=== PATIENT | female | born 1935 | race Caucasian/White ===

== ENCOUNTER 2016-08-30 23:26 | Emergency (ER) | payer MEDICARE, OTHER ==
--- NOTE | ~2016-08-30 | ER ---
PATIENT'S NAME: MATTHEW GAMBOA [facility] AGE: 80 Y [address] ROOM: [place] [address] LOCATION: [facility] ADMIT DATE: 08/30/2016 ER/Outpatient Report DISCHARGE DATE: 08/31/2016 FAMILY PHYSICIAN: Physician, Unknown ATTENDING PHYSICIAN: Erasmo Mitchell Admission date and time documented in the medical record. I saw the patient at 2335 hours. CHIEF COMPLAINT: Fall. HISTORY OF PRESENT ILLNESS: The patient is an 80-year-old female, who fell backwards on some gravel. She landed first on her buttocks, then back of her head, hit the ground. She was dazed but did not lose consciousness. She has a large contusion on occipital scalp. Large swelling. No abrasions or lacerations. No visual or auditory disturbance, lateralizing weakness, numbness, tingling, or loss of function. No neck or spine pain. Does have some right buttock pain. Denies any coccyx pain. No chest pain, shortness of breath. No abdominal pain, nausea, vomiting, diarrhea. No incontinence of stool or urine. No extremity pain, swelling, redness. No skin eruptions or rash. No history of neuro changes, psych issues, endocrine problems. No lightheadedness, dizziness, syncope, or near syncope. No other trauma. No recent colds, coughs, flus, fever, chills, or sweats. HOME MEDICATIONS: See attached medication list. ALLERGIES: PENICILLIN, SHIRA INHIBITORS. SOCIAL HISTORY: Nonsmoker, occasional intake of alcohol. SIGNIFICANT PAST MEDICAL HISTORY: End-stage renal disease, on hemodialysis; carotid occlusive disease; peripheral vascular disease; atherosclerotic ischemic heart disease with coronary artery disease; hypertension; dyslipidemia; degenerative joint disease; degenerative osteoarthritis. OPERATIONS: One-vessel coronary bypass graft, cardiac catheterization, left carotid endarterectomy, cholecystectomy, AV fistula x2, bilateral total knee arthroplasty. PATIENT'S NAME: MATTHEW GAMBOA [facility] AGE: 80 Y [address] ROOM: [place] [address] LOCATION: [facility] ADMIT DATE: 08/30/2016 ER/Outpatient Report DISCHARGE DATE: 08/31/2016 FAMILY PHYSICIAN: Physician, Unknown ATTENDING PHYSICIAN: Erasmo Mitchell REVIEW OF SYSTEMS: All systems reviewed by me are negative with the exception of those discussed in the history of present illness. PHYSICAL EXAMINATION: VITAL SIGNS: Temperature 97.2 tympanic, pulse 92, respirations 16, blood pressure 171/92, O2 saturation on room air is 94%. HEAD: Normocephalic. The patient has a large almost baseball sized swelling on mid occipital scalp. No abrasions. No lacerations. No facial injuries. EYES: Extraocular muscles intact. PERRL. Sclerae and conjunctivae clear, nonicteric. EARS: Clear TMs bilaterally. NOSE AND THROAT: Clear. Mucous membranes moist. NECK: No nuchal rigidity. No thyromegaly or cervical adenopathy. Full range of motion. No tenderness. SPINE: Negative. LUNGS: Clear. No rales, rhonchi, or wheezes. HEART: Regular. Pulses are palpable. ABDOMEN: Soft, nontender. Good bowel tones. No organomegaly or abnormal mass palpable. PELVIS: Stable, nontender. EXTREMITIES: The patient has swelling like a hematoma in her right buttock, it is tender. EXTREMITIES: Moves all 4 extremities. No peripheral edema, cyanosis, or deformity. NEUROVASCULAR: Intact. SKIN: Clear. No skin eruptions or rash. LABORATORY DATA AND X-RAYS: CT scan of the head showed no intracranial bleed, midline shift, mass effect, or skull fracture. Does have soft tissue swelling on the occipital scalp. CT scan of the cervical, thoracic, and lumbosacral spine showed degenerative changes, but no acute fracture or subluxation. 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 CT scan of the bony pelvis showed no fracture. All CT scans were read by Radiology. See dictated transcribed reports. IMPRESSION: 1. Fall with occipital scalp contusion, swelling; and right buttock contusion, swelling; no fractures found; no intracranial bleed. PLAN: The patient dismissed home. Observation. Activity as tolerated. Ice to any sore areas intermittently as needed for 72 hours. Continue present home PATIENT'S NAME: MATTHEW GAMBOA [facility] AGE: 80 Y [address] ROOM: [place] [address] LOCATION: [facility] ADMIT DATE: 08/30/2016 ER/Outpatient Report DISCHARGE DATE: 08/31/2016 FAMILY PHYSICIAN: Physician, Unknown ATTENDING PHYSICIAN: Erasmo Mitchell medications and care. Tylenol or ibuprofen 2 orally every 4 to 6 hours as needed for pain. Follow up with personal physician as needed. Discussion ensued with the patient concerning my findings and recommendations, she understands. MD HANANE COTTO/bautista /[id number] d: 08/31/163 t: 08/31/16 1814, OUTPATIENT REPORT
[~2016-08-30 23:26] MED LIST: COZAAR100 MG PO; ELAVIL25 MG PO; ISORDIL10 MG PO; LEVOTHROID (S112 MCG PO; LIPITOR10 MG PO; LOPRESSOR50 MG PO; NORCO 5-325 MG1 TAB PO; NORCO 5-325 TA1 EACH PO; NORVASC5 MG PO; PEPCID20 MG PO; PHOSLO667 MG PO; PLAVIX75 MG PO; THERA-VITE W/ B1 TAB PO; TYLENOL EXTRA500 MG PO; VITAMIN D1000 UNI1 PO; VITAMIN E400 UNI1 PO; ZYLOPRIM100 MG PO
== END 2016-08-31 01:17 | disposition disaster alternative care site (69) ==
LOC: GACC 23:26
DX: S00.03XA Contusion of scalp, initial encounter (principal); S30.0XXA Contusion of lower back and pelvis, initial encounter; I13.11 Hypertensive heart and chronic kidney disease without heart failure, with stage 5 chronic kidney disease, or end stage renal disease; N18.6 End stage renal disease; I25.10 Atherosclerotic heart disease of native coronary artery without angina pectoris; E78.5 Hyperlipidemia, unspecified; I73.9 Peripheral vascular disease, unspecified; M19.90 Unspecified osteoarthritis, unspecified site; Z99.2 Dependence on renal dialysis; Z88.0 Allergy status to penicillin; W01.0XXA Fall on same level from slipping, tripping and stumbling without subsequent striking against object, initial encounter

== ENCOUNTER 2016-10-27 11:41 | Inpatient (IN) | payer MEDICARE, OTHER ==
[~2016-10-27] VITALS: Ht 165.1 cm; Wt 74.1 kg
--- NOTE | ~2016-10-27 | DS ---
PATIENT'S NAME: MATTHEW GAMBOA [facility] AGE: 80 Y [address] ROOM: [address] [address] LOCATION: [facility]U ADMIT DATE: 10/27/2016 Discharge Summary DISCHARGE DATE: 10/30/2016 FAMILY PHYSICIAN: Breezy Blank MD ATTENDING PHYSICIAN: Olu Lundy PRIMARY DIAGNOSES: 1. Acute blood loss anemia. 2. Upper gastrointestinal bleed. 3. Hematemesis. 4. Acute hypoxic respiratory failure. Chronic conditions include: 1. End-stage renal disease, on hemodialysis. 2. Essential hypertension. PRINCIPAL PROCEDURES: Done for the patient include EGD with cauterization of mucosal bleeding vessel by Dr. Schafer and also transfusion with 3 units of blood. LABORATORY DATA: WBC on admission 5.5, was stable throughout the hospital stay, prior to discharge was 4.6; H and H on admission was 8.9/27.7, the lowest level obtained was 6.8/21.5, prior to discharge H and H were 11.5/34.3; platelet was stable throughout the hospital stay, at 160 upon discharge. Sodium on admission was 142, was stable throughout the hospital stay; creatinine on admission was 4.8, prior to discharge was 2.7; and potassium was also stable throughout the hospital stay as well as bicarb at 27 upon discharge. Serum iron 43, TIBC 125, transferrin saturation was 34%. RADIOLOGY: None was indicated. HOSPITAL COURSE: For history of present illness, please take a look at the H and P which was done by Dr. Raines. The patient was admitted to progressive care unit, was managed as a case of acute blood loss anemia. GI was consulted to rule out a GI bleed. The patient was also started on Protonix with H and H monitoring. The next day of the hospital stay, the patient had a successful EGD done during which they saw a bleeding mucosal vessel, that was cauterized. H and H monitoring was continued. The patient was still continued on her Protonix; however, following the EGD, the patient had transfusion with 1 unit of blood and the first day post EGD, the patient had a regular hemodialysis session during which, she was transfused with a total of 2 units of blood. During her stay, her Plavix was held and following the EGD, H and H continued to remain stable after transfusion with total units of 3 units of blood. Hemodynamically, the patient was stable throughout the whole hospital stay. Following the EGD, she was started on clear liquid diet which was advanced to regular diet and on the day of discharge, she had a regular diet without any PATIENT'S NAME: MATTHEW GAMBOA [facility] AGE: 80 Y [address] ROOM: [place] [address] LOCATION: [facility]PCU ADMIT DATE: 10/27/2016 Discharge Summary DISCHARGE DATE: 10/30/2016 FAMILY PHYSICIAN: Breezy Blank MD ATTENDING PHYSICIAN: Olu Lundy nausea, vomiting, or any more episodes of vomiting blood. On the morning of admission, she did have one episode of black stool. Vital signs remained stable and she was discharged home. DISCHARGE INSTRUCTIONS: The patient is to follow up in the GI Clinic in the next 2 days and she is to restart Plavix in the next 2 days. GI Clinic followup in the next 2 weeks. Also, the patient currently has no PCP; however, she says that probably she will start following up with the 's PCP, so plan is for her CBC to be rechecked with no PCP. MEDICATIONS ON DISCHARGE: 1. Allopurinol 100 mg p.o. daily. 2. Amitriptyline 25 mg p.o. q.h.s. 3. Norvasc 5 mg p.o. daily. 4. Plavix 75 mg p.o. daily, restart on November 01. 5. Lipitor 10 mg p.o. q.h.s. 6. Vitamin D 1000 units p.o. daily. 7. Vitamin E 400 units p.o. daily. 8. Multivitamin 1 tablet p.o. daily. 9. PhosLo 667 mg p.o. 4 times daily p.r.n. 10. Tylenol 1 g p.o. twice daily p.r.n. 11. Lovilia 5/325 mg 1-2 tablets p.o. q.4 hours p.r.n. 12. Isosorbide dinitrate 20 mg p.o. twice daily. 13. Synthroid 112 mcg p.o. daily before breakfast. 14. Cozaar 100 mg p.o. daily. 15. Lopressor 50 mg p.o. q.12 hours. 16. Pepcid 20 mg p.o. daily p.r.n. MD JOSE EISENBERG/bautista /[id number] d: 10/31/16 0112 t: 11/03/16 1413, DISCHARGE SUMMARY
--- NOTE | ~2016-10-27 | CON ---
PATIENT'S NAME: [facility] AGE: 80 Y [address] ROOM: [facility] [place] [id number] LOCATION: GPCU ADMIT DATE: 10/27/2016 Consultation DISCHARGE DATE: 10/30/2016 FAMILY PHYSICIAN: Breezy Blank MD ATTENDING PHYSICIAN: Kamron ELLIS DATE OF CONSULTATION: 10/28/2016 REFERRING PHYSICIAN: Vivian Schafer MD REASON FOR CONSULTATION: End-stage renal failure, due for dialysis treatment. HISTORY OF PRESENT ILLNESS: The patient is an 80-year-old white female who developed ESRD and currently on hemodialysis 3 times a week. She got admitted to the hospital with hematemesis. I have been asked to see her because she is due for her routine dialysis treatment. PAST MEDICAL HISTORY: End-stage renal failure, history of GI bleed, coronary artery disease, and hypothyroidism. PAST SURGICAL HISTORY: AV fistula placement; cholecystectomy; bilateral total knee arthroplasties; right renal artery stenosis, status post stenting; and left hip surgery. FAMILY HISTORY: No family history of kidney disease or dialysis. SOCIAL HISTORY: The patient quit smoking 25 years ago and does not drink any alcohol. Lives at home with her . ALLERGIES: ALLERGIC TO SHIRA INHIBITORS, PENICILLIN, AND . HOME MEDICATIONS: 1. Aspirin 81 mg a day. 2. Losartan 100 mg a day. 3. Elavil 25 mg q.h.s. 4. Isordil 20 mg twice a day. 5. Levothyroxine 112 mcg every day. 6. Lipitor 10 mg a day. 7. Lopressor 50 mg twice a day. 8. Norvasc 5 mg a day. PATIENT'S NAME: [facility] AGE: 80 Y [address] ROOM: [facility] [place], [place] [address] LOCATION: GPCU ADMIT DATE: 10/27/2016 Consultation DISCHARGE DATE: 10/30/2016 FAMILY PHYSICIAN: Breezy Blank MD ATTENDING PHYSICIAN: Kamron ELLIS 9. Protonix 40 mg twice a day. 10. Vitamin D 1000 international units every day. 11. Allopurinol 100 mg every day. 12. PhosLo 667 mg 4 times a day. REVIEW OF SYSTEMS: GENERAL: She denies any fever. She is very tired. HEENT: Denies any sore throat or sinus congestion. CARDIOVASCULAR: Denies any chest pain or dyspnea on exertion. RESPIRATORY: She denies shortness of breath, cough, or wheezing. GASTROINTESTINAL: She has been having nausea. She vomited blood and had black stools. GENITOURINARY: She is a dialysis patient, does not make urine. MUSCULOSKELETAL: Denies any joint pain or swelling. SKIN: Denies any rash or pruritus. IMMUNOLOGIC: Denies any allergies or hay fever. ENDOCRINE: Denies any heat or cold intolerance. PSYCHIATRIC: Denies any sadness, crying spells, poor concentration, or panic attack. PHYSICAL EXAMINATION: GENERAL APPEARANCE: An 80-year-old white female, lying in the hospital bed, looks pale. VITAL SIGNS: Temperature 98.3, pulse 76, systolic blood pressure is 94 and diastolic 58. HEENT: Normocephalic. Pupils are round and equal. Normal eyelids and pale conjunctivae. Oral cavity clear. Moist mucosa. NECK: Trachea is central. No thyromegaly. Flat jugular veins. CARDIAC: Heart sounds are audible in all the areas. There is no gallop or murmur. There is no pericardial rub. Pulses regular in rhythm. LUNGS: Bilaterally clear to auscultation. No intercostal retractions. ABDOMEN: Soft and nontender. Cannot palpate any liver or spleen. EXTREMITIES: She has no clubbing or cyanosis. LABORATORY DATA: Hemoglobin 7.0, hematocrit 21.7. Glucose is 86, BUN 50, creatinine 3.2, sodium 140, potassium 4.5, chloride 103, bicarbonate 29, and calcium 8.3. Albumin 2.5. ASSESSMENT: 1. End-stage renal failure. The patient is due for dialysis. 2. Gastrointestinal bleed. Workup in progress. 3. Coronary artery disease. 4. Hypothyroidism. 5. Anemia of chronic kidney disease. PATIENT'S NAME: MATTHEW GAMBOA [facility] AGE: 80 Y [address] ROOM: [id number] [place], [place] [address] LOCATION: GPCU ADMIT DATE: 10/27/2016 Consultation DISCHARGE DATE: 10/30/2016 FAMILY PHYSICIAN: Breezy Blank MD ATTENDING PHYSICIAN: Kamron ELLIS 6. History of renal artery stenosis. 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 The patient does have a history of renal artery stenosis and stent placement. She is due for her dialysis treatment tomorrow morning, and I will obtain her outpatient dialysis records. The patient is quite anemic, and she will need blood transfusion with hemodialysis treatment. I would like to thank Dr. Taylor for allowing me to participate in this patient's care. M MD JUSTIN ROMAN/bautista /[id number] d: 10/30/16 1509 t: 11/06/16 1233, CONSULTATION REPORT
--- NOTE | ~2016-10-27 | HP ---
PATIENT'S NAME: MATTHEW GAMBOA [facility] AGE: 80 Y [address] ROOM: [place] [address] LOCATION: GPCU ADMIT DATE: 10/27/2016 History & Physical DISCHARGE DATE: FAMILY PHYSICIAN: Breezy Blank MD ATTENDING PHYSICIAN: Kamron ELLIS DATE OF SERVICE: CHIEF COMPLAINT: Hematemesis. HISTORY OF PRESENT ILLNESS: The patient is an 80-year-old female with history of ESRD, history of possible CAD status post CABG, hypothyroidism, hypertension, and history of GI bleed who presents here with one episode of hematemesis. The patient reports that this morning she was feeling "achy and nauseous for a while," and had one episode of bright red hematemesis. The patient was brought in by a family member for further evaluation to our emergency department. The patient denies chest pain, shortness of breath, abdominal pain, diarrhea, chest pain, fever, chills, dizziness, or vertigo. Of note, the patient has a history of similar episode in 2013, had had one episode of hematemesis, and had EGD that was done in 2012 that shows duodenitis and gastric polyp status post colectomy. Also had colonoscopy and had some polyps removed. During that admission, patient's vital signs were stable and there were no signs of acute bleeding, and was discharged in stable condition with Protonix 40 mg b.i.d. PAST MEDICAL HISTORY: 1. ESRD. 2. History of GI bleed. 3. CAD status post CABG (?). The patient has CAD status post CABG, on the chart, however, reports that she had her open heart surgery due to valvular repair and does not remember if she actually had bypass. 4. Hypothyroidism. PAST SURGICAL HISTORY: 1. AV fistula. 2. Cholecystectomy. 3. Bilateral TKA. 4. Right renal artery stenosis status post stent. 5. Left hip surgeries. FAMILY HISTORY: Reports that both her mother and father had cardiac disease. SOCIAL HISTORY: PATIENT'S NAME: MATTHEW GAMBOA [facility] AGE: 80 Y [address] ROOM: [place] [address] LOCATION: GPCU ADMIT DATE: 10/27/2016 History & Physical DISCHARGE DATE: FAMILY PHYSICIAN: Breezy Blank MD ATTENDING PHYSICIAN: Kamron ELLIS She stopped smoking 25 years ago. Denies drinking, and currently lives with her . MEDICATIONS: Please see MAR. REVIEW OF SYSTEMS: All systems have been reviewed and are negative except for what I mentioned in the HPI. PHYSICAL EXAMINATION: VITAL SIGNS: Temperature 97.9, blood pressure 134/71, heart rate 70, respiratory rate 15, and oxygen saturation 96% on room air. GENERAL APPEARANCE: The patient is alert and awake, in no acute distress. HEENT: Head; normocephalic and atraumatic. Eyes; sclerae nonicteric. Extraocular muscles intact. Nose; no nasal discharge. Ears; hard of hearing. CHEST: Clear to auscultation bilaterally. HEART: Regular rate and rhythm. No murmurs, rubs, or gallops. ABDOMEN: Soft, nontender, and nondistended. Bowel sounds present. SKIN: Warm to touch. EXTREMITIES: The patient has failed left-sided AV fistula and currently working right-sided AV fistula on upper extremity. COMPUTER LAB AIDE: Alert and oriented x3. Motor and sensory grossly intact. MUSCULOSKELETAL: Range of motion intact. No obvious joint effusion noted. LABORATORY DATA: Hemoglobin 8.9, white blood cells of 5.5, and platelets of 277,000. Sodium of 140, potassium 4.5, BUN of 50, creatinine of 3.6, and white blood cell count of 86. ASSESSMENT AND PLAN: 1. Acute blood loss anemia. Etiology secondary to most likely gastrointestinal bleed as patient is presenting with hematemesis and elevated BUN, which is an increase from patient's baseline, especially as patient has gotten dialysis yesterday. Current BUN is 50, baseline usually in the 30s. We will start the patient on Protonix drip. We will keep the patient on clear liquid. We will acquire hemoglobin q.8 hours. To transfuse for hemoglobin below 8.0 as patient has a history of possible coronary artery disease. We will discontinue Plavix. We will keep aspirin as the patient has coronary artery disease. Consulted Gastroenterology. Discussed the case with Dr. Schafer. 2. Gastrointestinal bleed. See problem #1. 3. End-stage renal disease, gets dialysis on Friday, , and Friday. Holding. We will consult Dr. Alford. Dr. Alford is her silverware washer. PATIENT'S NAME: MATTHEW GAMBOA [facility] AGE: 80 Y [address] ROOM: [id number] [place], [place] [address] LOCATION: [facility] ADMIT DATE: 10/27/2016 History & Physical DISCHARGE DATE: FAMILY PHYSICIAN: Breezy Blank MD ATTENDING PHYSICIAN: Kamron ELLIS 4. History of coronary artery disease, status post coronary artery bypass grafting. At least on chart, the patient has a history of coronary artery disease status post coronary artery bypass grafting. On the physical examination, there is old surgical scar. The patient reports that she does not know why she had the surgery. Thinks she had the surgery because of valvular disease. We will continue Lipitor, aspirin, and beta-nova for now. The patient denies any chest pain. We will hold Plavix. No indication to continue Plavix. She has a history of renal artery stenosis before dialysis and currently, patient is on dialysis, thus there is no indication to continue Plavix. We will hold Plavix. 5. Hypothyroidism. Continue medication. 6. History of cerebrovascular accident. We will continue aspirin and Lipitor. The patient currently does not have any residual neurological deficits at least on my physical examination. The patient does not remember if she had a cerebrovascular accident and has had endarterectomy done on the left side. 7. Hypertension. To continue beta nova. We will hold other blood pressure medication as patient has acute blood loss anemia. I have personally reviewed the patient's medical record including but not limited to, blood work and radiology report. Total time spent with this patient is greater than 60 minutes, more than 50% of the time is spent in direct patient's care and patient consultation. Case was reviewed with the patient and Dr. Schafer, our GI doctor. The patient's questions were answered to her satisfaction. We will admit the patient for acute blood loss anemia. Code status on admission discussed; code status is full code. MD JULIO CÉSAR PINTO/modl /[id number] D: [id number] T: [id number] HISTORY & PHYSICAL
--- NOTE | ~2016-10-27 | CON ---
[facility] AGE: 80 Y [address] ROOM: [place] [address] LOCATION: GPCU ADMIT DATE: 10/27/2016 Consultation DISCHARGE DATE: FAMILY PHYSICIAN: Breezy Blank MD ATTENDING PHYSICIAN: Kamron ELLIS REFERRING PHYSICIAN: Vivian Schafer MD INPATIENT CONSULTATION REFERRING PHYSICIAN: Olu Lundy MD CONSULTING PHYSICIAN: Vivian Schafer MD REASON FOR CONSULTATION: Hematemesis. HISTORY OF PRESENT ILLNESS: The patient is a very pleasant, 80-year-old, white female who has a history of CKD on hemodialysis, as well as coronary artery disease, on Plavix and aspirin. She presented with a 1-day history of hematemesis. She had episodes of large emesis with fresh blood in it. This was happened this morning. There was no prior retching. There was no abdominal discomfort. She has not had any melena. There is no prior history of similar problems. She denies any NSAID use other than her aspirin and Plavix. Upon review, it appeared that in 2012, I had performed an upper endoscopy. The upper endoscopy had shown duodenitis in the bulb. There was a polyp in the stomach that was removed and polypectomy was performed using a snare cautery. She also had a colonoscopy performed at which time, there were three sessile polyps found. She says her prior colonoscopy in three years. She had a history of melena and anemia then. PAST MEDICAL HISTORY: ALLERGIES: PENICILLIN AND SHIRA INHIBITORS. CURRENT MEDICATIONS: Include: 1. Allopurinol. 2. Amitriptyline. 3. Amlodipine. 4. Atorvastatin. 5. Clopidogrel. 6. Isosorbide dinitrate. PATIENT'S NAME: [facility] AGE: 80 Y [address] ROOM: [place] [address] LOCATION: GPCU ADMIT DATE: 10/27/2016 Consultation DISCHARGE DATE: FAMILY PHYSICIAN: Breezy Blank MD ATTENDING PHYSICIAN: Kamron ELLIS 7. Levothyroxine. 8. Losartan. 9. Potassium. 10. Metoprolol. 11. Vitamin E. 12. Cholecalciferol. 13. Multivitamin. 14. Acetaminophen and hydrocodone. 15. Acetaminophen. 16. Famotidine. PAST SURGICAL HISTORY: Includes: 1. Appendectomy. 2. She remembers having surgery done in the groin. She is not sure about the exact nature of that. Past surgeries have included: 1. Arteriovenous malformation. 2. Left hip septic arthritis in November 2009. 3. Hysterectomy. 4. Cholecystectomy. 5. Carotid endarterectomy. 6. Bilateral total knee arthroplasties. 7. Renal artery stent placement. 8. She is also told that she has some aortic aneurysm in the belly but she is not sure. ILLNESSES: Also include: 1. End-stage renal disease. She is on dialysis for the last eight years. 2. Coronary artery disease, status post coronary artery bypass grafting, she is not sure if she also had any workup done. 3. She has also had a carotid endarterectomy. 4. Hypertension. 5. Hyperlipidemia. 6. History of stroke, with minimal residual effect. 7. Gouty arthritis. 8. Hypothyroidism. 9. Osteoarthritis. FAMILY HISTORY: Significant for non-Hodgkin's lymphoma in her sister. Her mother in her late 80s from an unknown cause. Her son had colon cancer with liver metastasis. PATIENT'S NAME: [facility] AGE: 80 Y [address] ROOM: [id number] [place] [id number] [facility] ADMIT DATE: 10/27/2016 Consultation DISCHARGE DATE: FAMILY PHYSICIAN: Breezy Blank MD ATTENDING PHYSICIAN: Kamron ELLIS SOCIAL HISTORY: She is . Lives near [place]. She is nonsmoker, and there is no history of alcohol use. REVIEW OF SYSTEMS: A detailed 10-point review of systems was done and found to be negative other than those mentioned in the History of Present Illness and Past Medical History. PHYSICAL EXAMINATION: GENERAL: She is alert and awake. Appears to be in no acute distress. HEAD AND ENT: Mild pallor. No icterus. Oral cavity is normal. Nasal passages are clear. VITAL SIGNS: Temperature 97.6, pulse 77 per minute, respiratory rate is 18, and blood pressure 169/75. CARDIOVASCULAR: S1 and S2. I do not hear any carotid bruits. NECK: No masses are felt. No thyromegaly is felt. ABDOMEN: There is mid abdominal scar. Soft, nontender. I do not feel any masses. MUSCULOSKELETAL: She has bilateral knee scars. Otherwise, unremarkable. NEUROLOGIC: Grossly nonfocal. PELVIC: Deferred at this time. RECTAL: Deferred at this time. LABORATORY DATA: Hemoglobin is 8.9, hematocrit 27.7, platelet count is 233, WBCs are 5.5, and MCV is 103.7. Currently, metabolic screen shows sodium 140, potassium 4.5, chloride is 103, bicarbonate is 29, BUN is 15, creatinine is 3.2, albumin is 2.5, total bilirubin 0.3, ALT is 13, AST is 18, and alkaline phosphatase is 109. IMPRESSION: The patient with a history of renal failure as well as being on Plavix and aspirin for coronary artery disease, presenting what appears to be an upper gastrointestinal bleeding. She is hemodynamically stable. RECOMMENDATIONS: At this time, I have scheduled the patient for an upper endoscopy in the morning. The procedure of upper endoscopy was explained in detail to the patient. All risks including but not limited to, bleeding, perforation, possible need for surgery were explained. Informed consent was then obtained. In the meanwhile, she can continue on the Protonix. Her hemoglobin and hematocrit needs to be followed. PATIENT'S NAME: [facility] AGE: 80 Y [address] ROOM: [place] [address] [facility] ADMIT DATE: 10/27/2016 Consultation DISCHARGE DATE: FAMILY PHYSICIAN: Breezy Blank MD ATTENDING PHYSICIAN: Kamron ELLIS The patient also has a history of colon polyps. She recently was followed up with stoppage of Plavix. This needs to be followed up with a colonoscopy after stoppage of Plavix. MD TELLO LUNDBERG/bautista /[id number] CC: Olu Lundy MD d: 10/27/16 2258 t: 06/08/17 1730, CONSULTATION REPORT
--- NOTE | ~2016-10-27 | ER ---
PATIENT'S NAME: [facility] AGE: 80 Y [address] ROOM: [place] [address] LOCATION: GPCU ADMIT DATE: 10/27/2016 ER/Outpatient Report DISCHARGE DATE: FAMILY PHYSICIAN: Breezy Blank MD ATTENDING PHYSICIAN: Kamron RAINES Time of Arrival: 1141 hours. Time of Evaluation: 1200 hours. IDENTIFICATION: An 80-year-old female. CHIEF COMPLAINT: Vomiting blood. HISTORY OF PRESENT ILLNESS: The patient is an 80-year-old female from [place], [place], who states she is on a blood thinner. This morning around 9:00 a.m., she had nausea and vomited up about a cup of dark blood. Her daughter states it was bright red. The patient says it was dark. She denies any abdominal pain. She has no chest pain. She has no other problems or concerns. She has no history of bleeding ulcers or peptic ulcer disease. She does have some gastroesophageal reflux disease. She is not lightheaded or dizzy. ALLERGIES: TO PENICILLIN, SHIRA INHIBITORS, CLONIDINE, LIPITOR, AND ULORIC ACCORDING TO OLD RECORDS. CURRENT MEDICATIONS: 1. Allopurinol 100 mg daily. 2. Amitriptyline 25 mg at h.s. 3. Amlodipine 5 mg at h.s. 4. Atorvastatin 10 mg at h.s. 5. Clopidogrel 75 mg once daily. 6. Famotidine 20 mg daily. 7. Isosorbide dinitrate 10 mg 2 tablets twice daily. 8. Levothyroxine 112 mcg daily. 9. Losartan 100 mg daily. 10. Metoprolol tartrate 50 mg twice daily. MEDICAL PROBLEMS: Hypertension; gout; end-stage renal disease, on dialysis Friday, , and Saturdays; hyperlipidemia; gastroesophageal reflux disease; hypothyroidism; abdominal aortic aneurysm; osteoarthritis; renal artery stenosis; CVA; history of duodenitis and upper GI bleed in April of 2013. PATIENT'S NAME: [facility] AGE: 80 Y [address] ROOM: [place] [address] LOCATION: GPCU ADMIT DATE: 10/27/2016 ER/Outpatient Report DISCHARGE DATE: FAMILY PHYSICIAN: Breezy Blank MD ATTENDING PHYSICIAN: Kamron RAINES PRIOR SURGERIES: Right arm brachioaxillary AV graft, ligation of left arm fistula, repair of incarcerated ventral hernia, left hip septic arthritis in November of 2009, hysterectomy, cholecystectomy, carotid endarterectomy, bilateral total knee replacements, renal artery stent placements, CABG in 2009. SOCIAL HISTORY: The patient lives at home with her in [place]. Tobacco use, quit 25 years ago. Alcohol use, occasional. FAMILY HISTORY: Mother secondary to non-Hodgkin's lymphoma. REVIEW OF SYSTEMS: All systems reviewed and negative other than what is noted on the HPI. The patient has a diffuse aneurysmal aorta, descending thoracic aorta 4 cm fusiform and infrarenal AAA [address] scan done in August of 2016. PHYSICAL EXAMINATION: VITAL SIGNS: Blood pressure 134/71, weight is 75, temp 97.9, sats greater than 99% on room air, heart rate 74. GENERAL: An 80-year-old female, in no acute distress. HEENT: Head: Normocephalic, atraumatic. Ears: TMs translucent both ears. Eyes: Pupils equal and reactive to light and accommodation. Extraocular movements intact. Nose: Mucosa pink. No lesions or drainage. Mouth: No lesions. Pharynx benign. NECK: Supple. No lymphadenopathy. LUNGS: Clear to auscultation. Breath sounds are equal. No rhonchi, wheezes, or rales. HEART: Regular rate and rhythm. No murmur, rub, or gallop. ABDOMEN: Bowel sounds present. Soft, nondistended, nontender. SKIN: [place], warm, and dry. No lesions or rashes noted. NEURO: The patient is alert and oriented x4. Cranial nerves 2 through 12 grossly intact. Motor strength 5/5 throughout. Sensation is intact to light touch. No lower extremity edema. No calf tenderness. EMERGENCY DEPARTMENT COURSE: An IV was initiated. Labs were drawn. Hemoglobin 8.9, which is down from 11.2 on May 22, 2016; hematocrit 27.7, macrocytic indices, platelets 233, white count 5.5, with a normal differential. INR 0.99. She had no vomiting or bleeding here in the emergency room. Sodium 140, potassium 4.5, chloride 103, CO2 of 29, BUN 50, creatinine 3.2, blood sugar 86. Liver enzymes normal. IMPRESSION: PATIENT'S NAME: [facility] AGE: 80 Y [address] ROOM: [address] [address] LOCATION: [facility] ADMIT DATE: 10/27/2016 ER/Outpatient Report DISCHARGE DATE: FAMILY PHYSICIAN: Breezy Blank MD ATTENDING PHYSICIAN: Kamron RAINES 1. Upper gastrointestinal bleed. 2. Anemia secondary to upper gastrointestinal bleed. 3. End-stage renal disease, on dialysis. 4. History of aortic aneurysm. 5. Hypertension. PLAN: For admission per Dr. Raines. He evaluated her in the emergency room. She also was started on Protonix 80 mg IV followed by Protonix drip. The patient remained hemodynamically stable throughout her stay in the ER. ANALIA FONG MD CAR/modl /[id number] d: 10/27/16 2159 t: 10/31/16 0931, OUTPATIENT REPORT
[2016-10-27 12:40] LABS: BASOPHIL # 0.1 K/uL (0.0-0.2); BASOPHIL % 1.1 %; EOSINOPHIL # 0.2 K/uL (0.0-0.5); EOSINOPHIL % 3.8 %; HEMATOCRIT 27.7 % (30.0-46.0); HEMOGLOBIN 8.9 g/dL (10.0-15.0); IMMATURE GRANULOCYTE # 0.1 K/uL (0.0-0.3); IMMATURE GRANULOCYTE % 1.3 %; LYMPHOCYTE # 1.2 K/uL (0.8-4.0); LYMPHOCYTE % 22.1 %; MCH 33.3 pg (27.0-34.0); MCHC 32.1 gm/dL (32.0-36.5); MCV 103.7 fl (83.0-98.0); MONOCYTE # 0.7 K/uL (0.0-1.0); MONOCYTE % 12.2 %; MPV 8.7 fl (9.4-12.4); NEUTROPHIL # (ANC) 3.3 K/uL (1.8-7.8); NEUTROPHIL % 59.5 %; NRBC % 0 /100WBC (0-0.00); PLATELET COUNT 233 K/uL (150-450); RBC 2.67 M/uL (3.00-5.00); RDW-CV 13.7 % (11.9-14.6); WBC 5.5 K/uL (4.0-11.0)
[2016-10-27 12:46] LABS: INR - (THERAPEUTIC) 0.99 (0.92-1.07); PROTIME 10.4 SECONDS (9.8-11.4); PTT 32 SECONDS (25-32)
[2016-10-27 12:54] LABS: ALBUMIN 2.5 gm/dL (3.5-5.0); ANION GAP 12.5 (10.0-19.0); CALCIUM 8.3 mg/dL (8.5-10.5); CREATININE 3.2 mg/dL (0.5-1.1); POTASSIUM 4.5 mMol/L (3.7-5.1); TOTAL BILIRUBIN 0.3 mg/dL (0.0-1.5); TOTAL PROTEIN 6.8 g/dL (6.0-8.4)
[2016-10-27] MEDS ORDERED: PEPCID20 MG PO (16:36)
--- NOTE | 2016-10-27 17:24 | NUR ---
1540 PT ADMITTED TO [id number] . AT TIME OF ADMIT PT IS A/O PINK WARM AND DRY. VSS. PT DENIES LIGHTHEADEDNESS OR DIZZINESS. SHE IS A HD PT. SHE HAS A VERY LARGE FISTULA IN HER LT UPPER ARM THAT IS TIED OFF AND NOT USABLE, BUT IS STILL VERY LARGE, NO BP IN THIS ARM. GOOD FISTULA IS IN RT ARM, WITH GOOD BRIUT AND THRILL. LUNGS ARE CLEAR ABDOMEN IS SOFT AND NONTENDER WITH PRESENT BOWEL SOUNDS. PULSES ARE PALPABLE, SHE HAS NO EDEMA. STEADY ON FEET WHEN UP BUT IS BETTER WITH A HAND TO THE BR. NO NAUSEA OR VOMITING SINCE ADMIT TO FLOOR. SHE DOES TAKE PLAVIX AND ASA 81 MG DAILY. CLEAR LIQUID DIET TONIGHT AND DID GOOD WITH IT. FAMILY AT BEDSIDE
[2016-10-27 20:38] LABS: HEMATOCRIT 27.2 % (30.0-46.0); HEMOGLOBIN 8.9 g/dL (10.0-15.0)
--- NOTE | 2016-10-28 04:42 | NUR ---
Significant Event: PATIENT ALERT AND ORIENTED X 3. VSS. NPO FOR EGD THIS AM. VOIDS WITHOUT DIFFICULTY. UP WITH 1 ASSIST. DENIES PAIN. HAS HD ON TU/TH/SAT. 2 SALINE LOCKS PATENT IN LEFT UPPER ARM/SHOULDER. HGB Q 8 HOURS - HAS REMAINED STABLE. PERMITS SIGNED AND CHECKLIST STARTED. [place]. DENIES NAUSEA, VOMITING, AND DIZZINESS THIS SHIFT. REQUESTS MANUAL B/P BE TAKEN ON L) LOWER EXT. D/T PAIN WITH MONITOR B/P. OLD TIED OFF FISTULA PRESENT IN LEFT ARM. WORKING FISTULA PRESENT IN RIGHT UPPER ARM - THRILL AND BRUIT PRESENT. PLEASANT AND COOPERTIVE WITH CARES. Follow up:
[2016-10-28 04:55] LABS: HEMOGLOBIN 8.1 g/dL (10.0-15.0)
--- NOTE | 2016-10-28 12:53 | NUR ---
1215 Stopped up to visit with Rosibel but ALEXIS Melendez tells me that she is currently down for an EGD and should be back up later this afternoon. In reviewing her charting, it appears that she lives in [place] with her , Balwinder and ALEXIS Melendez thinks that she will be able to go home upon dismissal. When Al got her up to go to the bathroom today she tells me that she was a one assist with transfers, but she feels like after her EGD, she will be feeling better and be able to get around a little better as well. Let Al know I would try to come back by later today to visit elmo Gleason about dismissal plans and make sure there were no CM needs at that time. Will continue to follow and assist. Plan home.
[2016-10-28 16:18] LABS: HEMATOCRIT 22.8 % (30.0-46.0)
[2016-10-28 16:20] LABS: HEMOGLOBIN 7.4 g/dL (10.0-15.0)
--- NOTE | 2016-10-28 18:55 | NUR ---
Significant Event: ALERT & ORIENTED. SBA. SBP 100-180, HR 80-90'S, AFEBRILE, ON 2 L WHILE SLEEPING AFTER EGD. ACTIVE BLEED CAUTERIZED & CLIPPED, EPI. NPO FOR 24 HOURS. PROTONIX GTT AT 10 ML/HR. H&H EVERY 8 HOURS, NEXT AT 2359. Follow up: GIVE 2 UNITS RBSC IN HD TOMORROW
[2016-10-28 23:55] LABS: HEMATOCRIT 21.7 % (30.0-46.0)
--- NOTE | 2016-10-29 01:08 | NUR ---
Upon second assessment I noticed a bruit to patients LLQ. When up to see admissions I had him come and assess the patient, patient scans show a 5cm abdominal aneurysm. Will continue to monitor.
[2016-10-29 03:29] LABS: BASOPHIL % 0.8 %; EOSINOPHIL # 0.2 K/uL (0.0-0.5); EOSINOPHIL % 3.8 %; HEMATOCRIT 21.5 % (30.0-46.0); IMMATURE GRANULOCYTE # 0.1 K/uL (0.0-0.3); IMMATURE GRANULOCYTE % 1.5 %; LYMPHOCYTE # 1.4 K/uL (0.8-4.0); LYMPHOCYTE % 26.2 %; MCHC 31.6 gm/dL (32.0-36.5); MCV 104.4 fl (83.0-98.0); MONOCYTE # 0.6 K/uL (0.0-1.0); MONOCYTE % 10.9 %; MPV 8.9 fl (9.4-12.4); NEUTROPHIL % 56.8 %; NRBC % 0 /100WBC (0-0.00); PLATELET COUNT 201 K/uL (150-450); RBC 2.06 M/uL (3.00-5.00); RDW-CV 14.2 % (11.9-14.6); WBC 5.2 K/uL (4.0-11.0)
[2016-10-29 03:34] LABS: HEMOGLOBIN 6.8 g/dL (10.0-15.0)
[2016-10-29 03:44] LABS: ALBUMIN 2.4 gm/dL (3.5-5.0); ANION GAP 17.6 (10.0-19.0); CALCIUM 8.3 mg/dL (8.5-10.5); PHOSPHORUS 4.5 mg/dL (2.5-4.9); POTASSIUM 4.6 mMol/L (3.7-5.1)
[2016-10-29 03:52] LABS: CREATININE 4.8 mg/dL (0.5-1.1)
--- NOTE | 2016-10-29 05:29 | NUR ---
Significant Event:A/Ox3. VSS on 1L/NC. Attempted to wean off 1L/NC and sats would drop to 85%. NPO for 24h post EGD. Swabs to mouth often. Bowels hypoactive, bruit from aneurysm noted. Hgb continue to trend down at 0300 hgb 6.8, received orders to tranfuse 1 unit PRBC now over 4h and post EGD orders for 2 units during dialysis ordered. Recheck accucheck at 0700 call results to . L)arm fistula tied off, ok to use LE for BP. R)arm fistula. PIV to upper L)arm x2. Protonix gtt and blood infusing with no complications to either IV. Follow up:HD today. Continue to monitor.
[2016-10-29 08:48] LABS: HEMATOCRIT 24.7 % (30.0-46.0)
--- NOTE | 2016-10-29 15:55 | NUR ---
Significant Event: pt had dialysis today, 400ml off. 1 unit finished here then pt had 2 more units prbc there. 02 room air, pt alittle wheezey as has been. SBP 81 then up to 94 right away. Pt family here with her. One asst to bathroom. One BM small blk soft. Follow up:
--- NOTE | 2016-10-29 16:00 | NUR ---
Introduced self and CM role to Rosibel. Rosibel tells me that she lives at home with her and plans to return there when she is medically cleared to do so. During the week she has dialysis at [facility] on [facility]. She and her live at [facility] on the [facility] side during the week and on the weekends, she and her return to their home in [place]. Their son that lives here in [facility] takes them to [place] on Saturdays and then their son that lives in [place] brings them back on Friday evenings. She states she has no concern with going back home when ready to do so. She gets her medications fill for 2 weeks at a time at the pharmacy in [place] and they divide them up in AM/PM pill packs for her so it makes it easier for her to take them. She is not currently set up with a PCP, although she tells me that her son is working on getting both her and her one when she is dismissed. Dr. Alford/ follow her for her dialysis needs. Rosibel denies any need for any DME or HHC follow up when she is ready to dismiss. She also tells me that either her son or her will be able to pick her up when she is medically stable to do so. Denies any other questions, needs or concern. CM to continue to follow and assist. Plan home.
[2016-10-29 17:10] LABS: HEMOGLOBIN 10.6 g/dL (10.0-15.0)
[2016-10-29 17:11] LABS: HEMATOCRIT 30.5 % (30.0-46.0)
[2016-10-30 00:04] LABS: HEMATOCRIT 30.4 % (30.0-46.0); HEMOGLOBIN 10.3 g/dL (10.0-15.0)
[2016-10-30 05:02] LABS: BASOPHIL % 0.9 %; EOSINOPHIL # 0.3 K/uL (0.0-0.5); EOSINOPHIL % 6.3 %; HEMATOCRIT 30.6 % (30.0-46.0); HEMOGLOBIN 10.3 g/dL (10.0-15.0); IMMATURE GRANULOCYTE # 0.1 K/uL (0.0-0.3); IMMATURE GRANULOCYTE % 1.1 %; LYMPHOCYTE # 0.8 K/uL (0.8-4.0); MCHC 33.7 gm/dL (32.0-36.5); MONOCYTE # 0.6 K/uL (0.0-1.0); MONOCYTE % 13.9 %; MPV 8.7 fl (9.4-12.4); NEUTROPHIL # (ANC) 2.8 K/uL (1.8-7.8); NEUTROPHIL % 59.8 %; NRBC % 0 /100WBC (0-0.00); WBC 4.6 K/uL (4.0-11.0)
[2016-10-30 05:03] LABS: MCH 31.9 pg (27.0-34.0); MCV 94.7 fl (83.0-98.0); PLATELET COUNT 160 K/uL (150-450); RBC 3.23 M/uL (3.00-5.00); RDW-CV 17.6 % (11.9-14.6)
--- NOTE | 2016-10-30 05:19 | NUR ---
Significant Event:A/Ox3. VSS on RA. SBP 100-130s. Small soft black stool prior to beginning of shift no BM in last 24hrs. HGB stable at 10.3 all night. Patient tolerated clear liquid diet. Protonix continues to infuse into upper left arm at 10ml/h. Transfers 1 assist. Follow up:Continue to monitor. Advance diet.
[2016-10-30 05:20] LABS: ANION GAP 13.1 (10.0-19.0); CREATININE 2.7 mg/dL (0.5-1.1); POTASSIUM 4.1 mMol/L (3.7-5.1)
[2016-10-30 12:37] LABS: HEMATOCRIT 34.3 % (30.0-46.0); HEMOGLOBIN 11.5 g/dL (10.0-15.0)
--- NOTE | 2016-10-30 17:07 | NUR ---
PT DISMISSED TO HOME WITH SON TO DRIVE. AT TIME OF DC PT IS A/O PINK WARM AND DRY, FAORLY STEADY ON FEET WHEN UP AND AROUND IN ROOM . LUNGS ARE CLEAR ABDOMEN IS SOFT AND NONTENDER WITH PRESENT BOWEL SOUNDS, ATE A HOT ROAST BEEF SANDWICH FOR DINNER AND DID FINE WITH IT. PULSES STRONG SHE HAS NO EDEMA. DC INSTRUCTIONS, PRESCRIPTIONS, MEDICATION INSTRUCTIONS, FOLLOW UP CARE AND APPOINTMENTS ALL WENT OVER WITH PT. VERBALIZES UNDERSTANDING. W/C TO FRONT WE[employer] DO[employer] FOR DC TO HOME
== END 2016-10-30 16:30 | disposition disaster alternative care site (69) | DRG 377 ==
LOC: GMED 11:41 → GPCU 14:01
PROVIDERS: Family Medicine; Hospitalist; Internal Medicine Nephrology; ADMIT Internal Medicine
PROC: 0W3P8ZZ Control Bleeding in Gastrointestinal Tract, Via Natural or Artificial Opening Endoscopic (ICD-10-PCS; 2016-10-28)
PROC: 30233N1 Transfusion of Nonautologous Red Blood Cells into Peripheral Vein, Percutaneous Approach (ICD-10-PCS; principal; 2016-10-29)
DX: K92.0 Hematemesis (principal); N18.6 End stage renal disease; J96.01 Acute respiratory failure with hypoxia; I12.0 Hypertensive chronic kidney disease with stage 5 chronic kidney disease or end stage renal disease; D62 Acute posthemorrhagic anemia; K31.82 Dieulafoy lesion (hemorrhagic) of stomach and duodenum; E78.5 Hyperlipidemia, unspecified; K21.9 Gastro-esophageal reflux disease without esophagitis; Z96.653 Presence of artificial knee joint, bilateral; E03.9 Hypothyroidism, unspecified; D63.1 Anemia in chronic kidney disease; M19.90 Unspecified osteoarthritis, unspecified site; Z86.73 Personal history of transient ischemic attack (TIA), and cerebral infarction without residual deficits; Z88.0 Allergy status to penicillin; Z99.2 Dependence on renal dialysis; Z90.710 Acquired absence of both cervix and uterus; Z90.49 Acquired absence of other specified parts of digestive tract; Z95.820 Peripheral vascular angioplasty status with implants and grafts; Z95.1 Presence of aortocoronary bypass graft; Z87.891 Personal history of nicotine dependence
CPT/HCPCS: A9270; C9113; J0171; J0360; J2405; J7030; J7040; J7050; P9016